=== PATIENT | female | born 1975 | race African-American/Black ===

== ENCOUNTER 2021-07-15 18:42 | Inpatient (IN) ==
[2021-07-15 19:29] LABS: PT Patient Result 10.9 SECS (10.5-12.0); Partial Thromboplastin Time 28.9 SECS (23.9-33.8)
[2021-07-15 19:41] LABS: Basophils % 0.2 % (0.0-0.8); Eosinophils % 0.2 % (0.00-10.9); Hematocrit 27.7 VOL% (35.7-47.0); Hemoglobin 7.6 GM/DL (12.0-16.0); Immature Granulocytes % 0.5 %; Immature Granulocytes Absolute 0.05 #; Lymphocytes # 1.2 10*3/uL (1.4-4.0); Lymphocytes % 11.7 % (21.3-54.2); Mean Corpuscular HGB Conc 27.4 GM/DL (32-36); Mean Corpuscular Volume 73.1 FL (87-102); Mean Platelet Volume 8.8 FL (9.6-12.0); Monocytes % 5.4 % (1.7-12.7); Platelet Count 346 T/CUMM (130-400); Red Blood Count 3.79 MC/CUMM (3.8-5.5); Red Cell Distribution Width 20.6 % (9.3-17.3); White Blood Count 10.6 T/CUMM (4-12)
[2021-07-15] MEDS ORDERED: MORPHINE 2 MG/1 ML SYRINGE ONE (20:13)
[2021-07-15] MEDS ORDERED: ONDANSETRON 4 MG/2 ML VIAL ONE (20:13)
[2021-07-15 20:36] LABS: CKMB % 9.7 %; Ferritin 12.8 ng/mL (8-252)
[2021-07-15] MEDS ORDERED: MORPHINE 2 MG/1 ML SYRINGE IV STA ×2 (20:36→23:07)
[2021-07-15] MEDS ORDERED: ONDANSETRON 4 MG/2 ML VIAL IV STA (20:37)
[2021-07-15 20:38] LABS: Bilirubin,Total 0.4 MG/DL (0.20-1.00); Calcium 8.5 MG/DL (8.5-10.1); High Sensitive Troponin I* 1299.4 ng/L (0-54); Osmolality,Calculated 278.5 MOS/KG (273-304); Total Protein 6.7 G/DL (6.4-8.2)
[2021-07-15] MEDS ORDERED: hydrALAZINE 20 MG/1 ML VIAL ONE (20:54)
[2021-07-15] MEDS ORDERED: hydrALAZINE 20 MG/1 ML VIAL IV STA (20:56)
[2021-07-16] MEDS ORDERED: SIMETHICONE CHEW 125 MG TABLET PO PRN (01:23)
[2021-07-16] MEDS ORDERED: DEXTROSE 50% 25 GM/50 ML VIAL IV PRN (01:23)
[2021-07-16] MEDS ORDERED: GLUCAGON 1 MG VIAL IM PRN (01:23)
[2021-07-16] MEDS ORDERED: MAGNESIUM SULF RIDER 2 GM/50 ML PREMIX IV PRN (01:23)
[2021-07-16] MEDS ORDERED: MAGNESIUM SULF RIDER 4 GM/100 ML PREMIX IV PRN (01:23)
[2021-07-16] MEDS ORDERED: hydrALAZINE 20 MG/1 ML VIAL IV PRN (01:23)
[2021-07-16] MEDS ORDERED: guaiFENesin/DM ER 600-30 MG TABLET PO PRN (01:23)
[2021-07-16] MEDS ORDERED: ONDANSETRON 4 MG/2 ML VIAL IV PRN (01:23)
[2021-07-16] MEDS ORDERED: POTASSIUM CHLORIDE RIDER 10 MEQ/100 ML PREMIX IV PRN (01:23)
[2021-07-16] MEDS ORDERED: NITROGLYCERIN SL 0.4 MG TABLET SL PRN (01:31)
[2021-07-16] MEDS: carvediloL 3.125 MG TABLET PO SCH ×3 (02:15→20:50)
[2021-07-16 02:24] LABS: Hematocrit 27.5 VOL% (35.7-47.0)
[2021-07-16 02:27] LABS: Hemoglobin 7.6 GM/DL (12.0-16.0)
[2021-07-16] MEDS: MORPHINE 2 MG/1 ML SYRINGE IV PRN ×2 (03:05→18:47)
[2021-07-16] MEDS: HYDROCORTISONE 100 MG VIAL IV SCH ×2 (03:55→20:50)
[2021-07-16] MEDS: ENOXAPARIN 120 MG/0.8 ML SYRINGE SUBCUT SCH ×2 (03:55→20:50)
[2021-07-16 06:02] LABS: Calcium 8.3 MG/DL (8.5-10.1); Osmolality,Calculated 274.5 MOS/KG (273-304); Potassium 3.5 MMOL/L (3.5-5.1); Risk Ratio 2.74; Thyroid Stimulating Hormone 4.85 uIU/ml (0.358-3.74); VLDL Cholesterol 14.8 MG/DL
[2021-07-16 06:46] LABS: Basophils % 0.2 % (0.0-0.8); Eosinophils # 0.1 10*3/uL (0.0-0.87); Eosinophils % 0.9 % (0.00-10.9); Hematocrit 25.7 VOL% (35.7-47.0); Hemoglobin 7.3 GM/DL (12.0-16.0); Immature Granulocytes % 0.3 %; Immature Granulocytes Absolute 0.03 #; Lymphocytes # 2.1 10*3/uL (1.4-4.0); Lymphocytes % 21.2 % (21.3-54.2); Mean Corpuscular HGB Conc 28.4 GM/DL (32-36); Mean Platelet Volume 9.7 FL (9.6-12.0); Monocytes % 8.2 % (1.7-12.7); Neutrophils % 69.2 % (38.7-73.9); Platelet Count 359 T/CUMM (130-400); Red Blood Count 3.57 MC/CUMM (3.8-5.5); Red Cell Distribution Width 20.6 % (9.3-17.3)
[2021-07-16] MEDS: INSULIN REGULAR 100 UNIT/ML SUBCUT SCH ×4 (07:30→20:50)
[2021-07-16] MEDS ORDERED: ENOXAPARIN 40 MG/0.4 ML SYRINGE SUBCUT SCH (09:00)
[2021-07-16] MEDS: LOSARTAN 25 MG TABLET PO SCH (09:06)
[2021-07-16] MEDS: ASPIRIN EC 81 MG TABLET PO SCH (09:07)
[2021-07-16] MEDS: ROSUVASTATIN 20 MG TABLET PO SCH (09:07)
[2021-07-16] MEDS: PANTOPRAZOLE 40 MG TABLET PO SCH (09:07)
[2021-07-16] MEDS: ISOSORBIDE MONONITRATE 30 MG TABLET PO SCH (13:27)
[2021-07-16] MEDS ORDERED: MELATONIN 3 MG TABLET PO PRN (14:22)
[2021-07-16] MEDS: FAMOTIDINE 20 MG TABLET PO SCH (20:50)
[2021-07-16] MEDS: ASCORBIC ACID 500 MG TABLET PO SCH (20:50)
[2021-07-17 06:12] LABS: Calcium 8.2 MG/DL (8.5-10.1); Osmolality,Calculated 273.5 MOS/KG (273-304); Potassium 3.9 MMOL/L (3.5-5.1)
[2021-07-17 06:23] LABS: Ferritin 17.2 ng/mL (8-252)
[2021-07-17 06:26] LABS: Basophils % 0.4 % (0.0-0.8); Eosinophils # 0.1 10*3/uL (0.0-0.87); Hematocrit 24.9 VOL% (35.7-47.0); Hemoglobin 6.8 GM/DL (12.0-16.0); Immature Granulocytes % 0.3 %; Immature Granulocytes Absolute 0.02 #; Lymphocytes # 2.4 10*3/uL (1.4-4.0); Lymphocytes % 33.1 % (21.3-54.2); Mean Corpuscular HGB Conc 27.3 GM/DL (32-36); Mean Platelet Volume 9.2 FL (9.6-12.0); Monocytes % 6.7 % (1.7-12.7); Neutrophils % 58.5 % (38.7-73.9); Platelet Count 333 T/CUMM (130-400); Red Blood Count 3.41 MC/CUMM (3.8-5.5); Red Cell Distribution Width 20.9 % (9.3-17.3); White Blood Count 7.3 T/CUMM (4-12)
[2021-07-17 06:32] LABS: Hypochromasia 1+; Microcytosis 1+; Platelet Estimate Adequate
[2021-07-17] MEDS: INSULIN REGULAR 100 UNIT/ML SUBCUT SCH ×4 (07:49→21:20)
[2021-07-17 07:54] LABS: CKMB % 7.3 %
[2021-07-17] MEDS ORDERED: SODIUM CHLORIDE 0.9% 1,000 ML IV PRN (08:40)
[2021-07-17] MEDS ORDERED: ASPIRIN EC 325 MG TABLET PO SCH (09:00)
[2021-07-17] MEDS: ROSUVASTATIN 20 MG TABLET PO SCH (10:42)
[2021-07-17] MEDS: ISOSORBIDE MONONITRATE 30 MG TABLET PO SCH (10:42)
[2021-07-17] MEDS: FAMOTIDINE 20 MG TABLET PO SCH ×2 (10:42→21:19)
[2021-07-17] MEDS: PANTOPRAZOLE 40 MG TABLET PO SCH (10:42)
[2021-07-17] MEDS: ASPIRIN EC 81 MG TABLET PO SCH (10:42)
[2021-07-17] MEDS: carvediloL 3.125 MG TABLET PO SCH ×2 (10:42→21:19)
[2021-07-17] MEDS: LOSARTAN 25 MG TABLET PO SCH (10:42)
[2021-07-17] MEDS: ZINC GLUCONATE 50 MG TABLET PO SCH (10:43)
[2021-07-17] MEDS: CETIRIZINE 10 MG TABLET PO SCH (10:43)
[2021-07-17] MEDS: MORPHINE 2 MG/1 ML SYRINGE IV PRN (10:43)
[2021-07-17] MEDS: CHOLECALCIFEROL 1,000 UNIT TABLET PO SCH (10:43)
[2021-07-17] MEDS: ASCORBIC ACID 500 MG TABLET PO SCH ×2 (10:43→21:20)
[2021-07-17] MEDS: HYDROCORTISONE 100 MG VIAL IV SCH ×2 (10:51→21:19)
[2021-07-17 23:50] LABS: Hematocrit 33.7 VOL% (35.7-47.0); Hemoglobin 9.9 GM/DL (12.0-16.0)
[2021-07-18 06:20] LABS: Ferritin 17.6 ng/mL (8-252)
[2021-07-18 06:30] LABS: Basophils % 0.2 % (0.0-0.8); Eosinophils # 0.1 10*3/uL (0.0-0.87); Eosinophils % 0.7 % (0.00-10.9); Hematocrit 33.2 VOL% (35.7-47.0); Hemoglobin 9.8 GM/DL (12.0-16.0); Immature Granulocytes % 0.4 %; Immature Granulocytes Absolute 0.03 #; Mean Corpuscular HGB Conc 29.5 GM/DL (32-36); Mean Corpuscular Volume 78.3 FL (87-102); Mean Platelet Volume 8.8 FL (9.6-12.0); Monocytes % 6.2 % (1.7-12.7); NRBC # 0.02 10*3/uL; Neutrophils % 69.5 % (38.7-73.9); Platelet Count 369 T/CUMM (130-400); Red Cell Distribution Width 22.3 % (9.3-17.3); White Blood Count 8.6 T/CUMM (4-12)
[2021-07-18 06:31] LABS: Red Blood Count 4.24 MC/CUMM (3.8-5.5)
[2021-07-18 07:43] VITALS: BP 140/80
[2021-07-18] MEDS: INSULIN REGULAR 100 UNIT/ML SUBCUT SCH ×2 (08:11→12:13)
[2021-07-18] MEDS: ASPIRIN EC 81 MG TABLET PO SCH (08:54)
[2021-07-18] MEDS: LOSARTAN 25 MG TABLET PO SCH (08:54)
[2021-07-18] MEDS: carvediloL 3.125 MG TABLET PO SCH (08:54)
[2021-07-18] MEDS: ROSUVASTATIN 20 MG TABLET PO SCH (08:54)
[2021-07-18] MEDS: FAMOTIDINE 20 MG TABLET PO SCH (08:55)
[2021-07-18] MEDS: HYDROCORTISONE 100 MG VIAL IV SCH (08:55)
[2021-07-18] MEDS: ISOSORBIDE MONONITRATE 30 MG TABLET PO SCH (08:55)
[2021-07-18] MEDS: ZINC GLUCONATE 50 MG TABLET PO SCH (08:55)
[2021-07-18] MEDS: CHOLECALCIFEROL 1,000 UNIT TABLET PO SCH (08:55)
[2021-07-18] MEDS: PANTOPRAZOLE 40 MG TABLET PO SCH (08:55)
[2021-07-18] MEDS: ASCORBIC ACID 500 MG TABLET PO SCH (08:55)
[2021-07-18] MEDS: CETIRIZINE 10 MG TABLET PO SCH (08:56)
[2021-07-18] MEDS: MORPHINE 2 MG/1 ML SYRINGE IV PRN (09:30)
[2021-07-18] MEDS ORDERED: KETOROLAC 30 MG/1 ML VIAL IM ONE (10:00)
== END 2021-07-18 13:23 | disposition home or self-care (01) | DRG 177 ==
LOC: EDBD → EDUNIT# → N.ED 18:42 → N.EDINP 07-16 00:31 → N.2E 07-16 00:46
PROVIDERS: ADMIT Internal Medicine; ATTEND Internal Medicine

== ENCOUNTER 2021-08-16 16:28 | Inpatient (IN) ==
[2021-08-16] MEDS ORDERED: ONDANSETRON 4 MG/2 ML VIAL IV ONE ×2 (17:57→18:56)
[2021-08-16] MEDS ORDERED: MORPHINE 2 MG/1 ML SYRINGE IV ONE ×2 (17:57→18:56)
[2021-08-16 18:24] LABS: Basophils % 0.2 % (0.0-0.8); Hematocrit 34.5 VOL% (35.7-47.0); Hemoglobin 10.4 GM/DL (12.0-16.0); Immature Granulocytes % 0.5 %; Immature Granulocytes Absolute 0.08 #; Lymphocytes # 1.7 10*3/uL (1.4-4.0); Lymphocytes % 11.5 % (21.3-54.2); Mean Corpuscular HGB Conc 30.1 GM/DL (32-36); Mean Corpuscular Volume 81.9 FL (87-102); Monocytes % 2.3 % (1.7-12.7); Neutrophils % 85.5 % (38.7-73.9); Platelet Count 364 T/CUMM (130-400); Red Blood Count 4.21 MC/CUMM (3.8-5.5); Red Cell Distribution Width 26.8 % (9.3-17.3); White Blood Count 14.9 T/CUMM (4-12)
[2021-08-16 18:48] LABS: Alanine Aminotransferase 19 U/L (13-56); Albumin 3.1 G/DL (3.4-5.0); Alkaline Phosphatase 81 U/L (45-117); Aspartate Amino Transferase 41 U/L (0-37); Bilirubin,Total < 0.39 MG/DL (0.20-1.00); Blood Urea Nitrogen 7 MG/DL (7-18); Calcium 8.5 MG/DL (8.5-10.1); Carbon Dioxide 20 MMOL/L (21-32); Estimated Glom Filtration Rate 145 ML/MIN; Glucose 116 MG/DL (74-106); Osmolality,Calculated 281.1 MOS/KG (273-304); Potassium 4.3 MMOL/L (3.5-5.1); Sodium 142 MMOL/L (136-145); Total Protein 6.9 G/DL (6.4-8.2)
[2021-08-16] MEDS ORDERED: NITROGLYCERIN 2% OINT 1 INCH/GM PACK TOP STA (18:55)
[2021-08-16] MEDS ORDERED: HEPARIN DRIP 25,000 UNITS/500 ML PREMIX IV SCH (19:00)
[2021-08-16] MEDS ORDERED: KETOROLAC 30 MG/1 ML VIAL IV ONE (19:12)
[2021-08-16] MEDS ORDERED: PANTOPRAZOLE 40 MG TABLET PO STA (19:14)
[2021-08-16] MEDS ORDERED: MAGNESIUM SULF RIDER 2 GM/50 ML PREMIX IV PRN (19:20)
[2021-08-16] MEDS ORDERED: MAGNESIUM SULF RIDER 4 GM/100 ML PREMIX IV PRN (19:20)
[2021-08-16 20:41] LABS: Barbiturates Screen,Urine Negative (Negative); Benzodiazepines Screen,Urine Negative (Negative); Cannabinoid Screen,Urine Negative (Negative); Opiate Screen,Urine Positive (Negative); Phencyclidine Screen,Urine Negative (Negative)
[2021-08-16] MEDS: SODIUM CHLORIDE 0.9% 1,000 ML IV SCH (21:45)
[2021-08-16] MEDS: CYCLOBENZAPRINE 10 MG TABLET PO PRN (21:45)
[2021-08-16] MEDS: MORPHINE 2 MG/1 ML SYRINGE IV PRN (21:45)
[2021-08-16] MEDS: GABAPENTIN 300 MG CAPSULE PO SCH (21:45)
[2021-08-17] MEDS: MORPHINE 2 MG/1 ML SYRINGE IV PRN ×2 (01:00→18:05)
[2021-08-17] MEDS: KETOROLAC 15 MG/1 ML VIAL IV PRN (02:05)
[2021-08-17] MEDS: SODIUM CHLORIDE 0.9% 1,000 ML IV SCH ×5 (04:45→22:03)
[2021-08-17 06:11] LABS: Basophils # 0.1 10*3/uL (0.0-0.2); Basophils % 0.5 % (0.0-0.8); Eosinophils # 0.1 10*3/uL (0.0-0.87); Eosinophils % 1.2 % (0.00-10.9); Hematocrit 30.7 VOL% (35.7-47.0); Hemoglobin 9.1 GM/DL (12.0-16.0); Immature Granulocytes % 0.4 %; Immature Granulocytes Absolute 0.04 #; Lymphocytes # 3.6 10*3/uL (1.4-4.0); Mean Corpuscular HGB Conc 29.6 GM/DL (32-36); Mean Corpuscular Volume 81.6 FL (87-102); Mean Platelet Volume 8.5 FL (9.6-12.0); Monocytes % 4.9 % (1.7-12.7); Platelet Count 299 T/CUMM (130-400); Red Blood Count 3.76 MC/CUMM (3.8-5.5); Red Cell Distribution Width 26.5 % (9.3-17.3); White Blood Count 10.9 T/CUMM (4-12)
[2021-08-17 06:33] LABS: Risk Ratio 2.37; VLDL Cholesterol 15.2 MG/DL
[2021-08-17 06:51] LABS: Albumin 2.5 G/DL (3.4-5.0); Bilirubin,Total 0.6 MG/DL (0.20-1.00); Calcium 7.8 MG/DL (8.5-10.1); Osmolality,Calculated 275.4 MOS/KG (273-304); Potassium 3.6 MMOL/L (3.5-5.1); Total Protein 6.1 G/DL (6.4-8.2)
[2021-08-17] MEDS: ASPIRIN EC 325 MG TABLET PO SCH (08:13)
[2021-08-17] MEDS: GABAPENTIN 300 MG CAPSULE PO SCH ×2 (08:13→20:27)
[2021-08-17] MEDS ORDERED: NITROGLYCERIN SL 0.4 MG TABLET SL PRN (11:39)
[2021-08-17] MEDS ORDERED: ENOXAPARIN 100 MG/ML SYRINGE SUBCUT SCH (12:00)
[2021-08-17] MEDS: carvediloL 3.125 MG TABLET PO SCH (18:02)
[2021-08-17] MEDS: ACETAMINOPHEN 500 MG TABLET PO SCH (18:03)
[2021-08-17] MEDS: CYCLOBENZAPRINE 10 MG TABLET PO PRN (20:27)
[2021-08-17] MEDS: RISPERIDONE 1 MG/ML PO SCH (20:27)
[2021-08-18] MEDS: ACETAMINOPHEN 500 MG TABLET PO SCH ×4 (00:30→17:21)
[2021-08-18] MEDS: MORPHINE 2 MG/1 ML SYRINGE IV PRN ×2 (00:41→22:04)
[2021-08-18] MEDS: SODIUM CHLORIDE 0.9% 1,000 ML IV SCH ×2 (04:40→05:45)
[2021-08-18 06:07] LABS: Basophils % 0.4 % (0.0-0.8); Eosinophils # 0.1 10*3/uL (0.0-0.87); Eosinophils % 1.9 % (0.00-10.9); Hematocrit 29.9 VOL% (35.7-47.0); Hemoglobin 8.8 GM/DL (12.0-16.0); Immature Granulocytes % 0.4 %; Immature Granulocytes Absolute 0.03 #; Lymphocytes # 2.4 10*3/uL (1.4-4.0); Lymphocytes % 33.6 % (21.3-54.2); Mean Corpuscular HGB Conc 29.4 GM/DL (32-36); Mean Corpuscular Volume 83.1 FL (87-102); Mean Platelet Volume 8.3 FL (9.6-12.0); Monocytes % 5.1 % (1.7-12.7); Neutrophils % 58.6 % (38.7-73.9); Platelet Count 254 T/CUMM (130-400); Red Cell Distribution Width 26.5 % (9.3-17.3); White Blood Count 7.2 T/CUMM (4-12)
[2021-08-18 06:36] LABS: Calcium 7.8 MG/DL (8.5-10.1); Osmolality,Calculated 277.3 MOS/KG (273-304); Potassium 3.7 MMOL/L (3.5-5.1)
[2021-08-18] MEDS: ISOSORBIDE MONONITRATE 30 MG TABLET PO SCH (08:33)
[2021-08-18] MEDS: FLUoxetine 20 MG CAPSULE PO SCH (08:34)
[2021-08-18] MEDS: LOSARTAN 25 MG TABLET PO SCH (08:34)
[2021-08-18] MEDS: ROSUVASTATIN 20 MG TABLET PO SCH (08:34)
[2021-08-18] MEDS: KETOROLAC 15 MG/1 ML VIAL IV PRN (08:34)
[2021-08-18] MEDS: GABAPENTIN 300 MG CAPSULE PO SCH ×2 (08:34→22:04)
[2021-08-18] MEDS: RISPERIDONE 1 MG/ML PO SCH (08:34)
[2021-08-18] MEDS: ASPIRIN EC 325 MG TABLET PO SCH (08:34)
[2021-08-18] MEDS: carvediloL 3.125 MG TABLET PO SCH (08:34)
[2021-08-18] MEDS ORDERED: POTASSIUM CHLORIDE RIDER 10 MEQ/100 ML PREMIX IV PRN ×2 (11:42→11:43)
[2021-08-18] MEDS ORDERED: MAGNESIUM SULF RIDER 2 GM/50 ML PREMIX IV PRN (11:42)
[2021-08-18] MEDS: ENOXAPARIN 100 MG/ML SYRINGE SUBCUT SCH (12:05)
[2021-08-18] MEDS: carvediloL 6.25 MG TABLET PO SCH (17:21)
[2021-08-19] MEDS: RISPERIDONE 1 MG/ML PO SCH ×2 (04:16→12:00)
[2021-08-19] MEDS: ACETAMINOPHEN 500 MG TABLET PO SCH ×3 (04:22→16:04)
[2021-08-19 05:09] LABS: Basophils % 0.5 % (0.0-0.8); Eosinophils # 0.2 10*3/uL (0.0-0.87); Eosinophils % 2.4 % (0.00-10.9); Hematocrit 29.2 VOL% (35.7-47.0); Hemoglobin 8.5 GM/DL (12.0-16.0); Immature Granulocytes % 0.3 %; Immature Granulocytes Absolute 0.02 #; Lymphocytes # 2.5 10*3/uL (1.4-4.0); Lymphocytes % 40.9 % (21.3-54.2); Mean Corpuscular HGB Conc 29.1 GM/DL (32-36); Mean Corpuscular Volume 83.7 FL (87-102); Mean Platelet Volume 8.8 FL (9.6-12.0); Monocytes % 6.4 % (1.7-12.7); Neutrophils % 49.5 % (38.7-73.9); Platelet Count 254 T/CUMM (130-400); Red Blood Count 3.49 MC/CUMM (3.8-5.5); Red Cell Distribution Width 26.7 % (9.3-17.3); White Blood Count 6.1 T/CUMM (4-12)
[2021-08-19 05:28] LABS: Calcium 7.9 MG/DL (8.5-10.1); Potassium 3.6 MMOL/L (3.5-5.1)
[2021-08-19 05:52] LABS: Hypochromasia 2+; Microcytosis 2+; Ovalocytes Slight
[2021-08-19 05:53] LABS: Platelet Estimate Normal
[2021-08-19] MEDS ORDERED: diphenhydrAMINE CAP 25 MG CAPSULE PO ONE (06:30)
[2021-08-19] MEDS ORDERED: DIAZEPAM 5 MG TABLET PO ONE (06:30)
[2021-08-19] MEDS: ENOXAPARIN 100 MG/ML SYRINGE SUBCUT SCH ×2 (06:41→16:56)
[2021-08-19] MEDS ORDERED: SODIUM CHLORIDE 0.45% 1,000 ML IV SCH (09:00)
[2021-08-19] MEDS: GABAPENTIN 300 MG CAPSULE PO SCH (09:18)
[2021-08-19] MEDS: FLUoxetine 20 MG CAPSULE PO SCH (09:18)
[2021-08-19] MEDS: ROSUVASTATIN 20 MG TABLET PO SCH (09:18)
[2021-08-19] MEDS: ISOSORBIDE MONONITRATE 30 MG TABLET PO SCH (09:19)
[2021-08-19] MEDS: LOSARTAN 25 MG TABLET PO SCH (09:19)
[2021-08-19] MEDS: carvediloL 6.25 MG TABLET PO SCH (09:19)
[2021-08-19] MEDS: ASPIRIN EC 325 MG TABLET PO SCH (09:19)
[2021-08-19] MEDS: CYCLOBENZAPRINE 10 MG TABLET PO PRN (14:28)
[2021-08-19 17:13] VITALS: BP 143/81
== END 2021-08-19 17:14 | disposition home or self-care (01) | DRG 282 ==
LOC: EDUNIT# → EDBD → N.ED 16:28 → SUATTDRO 19:20 → N.EDINP 19:20 → N.CC 21:19 → N.TELEN 08-17 16:13
PROVIDERS: ADMIT Internal Medicine Cardiovascular Disease; ATTEND Internal Medicine Cardiovascular Disease

== ENCOUNTER 2021-09-18 18:16 | Inpatient (IN) ==
[2021-09-18] MEDS ORDERED: GLUCAGON 1 MG VIAL IM PRN (21:07)
[2021-09-18] MEDS ORDERED: ONDANSETRON 4 MG/2 ML VIAL IV PRN (21:10)
[2021-09-18] MEDS ORDERED: hydrALAZINE 20 MG/1 ML VIAL IV PRN (21:10)
[2021-09-18] MEDS ORDERED: ACETAMINOPHEN 325 MG TABLET PO PRN (21:10)
[2021-09-18] MEDS ORDERED: MORPHINE 2 MG/1 ML SYRINGE IV PRN ×2 (21:10)
[2021-09-18] MEDS ORDERED: SIMETHICONE CHEW 125 MG TABLET PO PRN (21:10)
[2021-09-18] MEDS ORDERED: NITROGLYCERIN SL 0.4 MG TABLET SL PRN (21:10)
[2021-09-18] MEDS ORDERED: ZALEPLON 5 MG CAPSULE PO PRN (21:10)
[2021-09-18] MEDS ORDERED: DEXTROSE 50% 25 GM/50 ML SYRINGE IV PRN (21:35)
[2021-09-18] MEDS ORDERED: ENOXAPARIN 120 MG/0.8 ML SYRINGE SUBCUT ONE (21:50)
[2021-09-18 21:59] LABS: Basophils # 0.1 10*3/uL (0.0-0.2); Basophils % 0.4 % (0.0-0.8); Eosinophils % 0.2 % (0.00-10.9); Hematocrit 38.5 VOL% (35.7-47.0); Hemoglobin 11.5 GM/DL (12.0-16.0); Immature Granulocytes % 0.6 %; Immature Granulocytes Absolute 0.07 #; Lymphocytes # 2.5 10*3/uL (1.4-4.0); Mean Corpuscular HGB Conc 29.9 GM/DL (32-36); Mean Corpuscular Volume 88.5 FL (87-102); Monocytes % 5.2 % (1.7-12.7); Neutrophils % 73.6 % (38.7-73.9); Platelet Count 315 T/CUMM (130-400); Red Blood Count 4.35 MC/CUMM (3.8-5.5); Red Cell Distribution Width 25.1 % (9.3-17.3); White Blood Count 12.2 T/CUMM (4-12)
[2021-09-18 22:31] LABS: Albumin 3.3 G/DL (3.4-5.0); Bilirubin,Total 0.4 MG/DL (0.20-1.00); Osmolality,Calculated 280.3 MOS/KG (273-304); Potassium 3.9 MMOL/L (3.5-5.1); Thyroid Stimulating Hormone 4.24 uIU/ml (0.358-3.74); Total Protein 7.9 G/DL (6.4-8.2)
[2021-09-19 01:04] LABS: Risk Ratio 2.22; VLDL Cholesterol 14.2 MG/DL
[2021-09-19] MEDS ORDERED: ASPIRIN EC 81 MG TABLET PO SCH (10:00)
[2021-09-19] MEDS ORDERED: MAGNESIUM SULF RIDER 2 GM/50 ML PREMIX IV PRN (10:51)
[2021-09-19] MEDS ORDERED: diphenhydrAMINE CAP 25 MG CAPSULE PO ONE (10:51)
[2021-09-19] MEDS ORDERED: POTASSIUM CHLORIDE RIDER 10 MEQ/100 ML PREMIX IV PRN (10:51)
[2021-09-19] MEDS ORDERED: DIAZEPAM 5 MG TABLET PO ONE (10:51)
[2021-09-19] MEDS: NITROGLYCERIN 2% OINT 1 INCH/GM PACK TOP SCH ×3 (11:14→17:47)
[2021-09-19] MEDS: DOCUSATE SODIUM 100 MG CAPSULE PO SCH ×2 (11:14→21:37)
[2021-09-19] MEDS: METOPROLOL TARTRATE 25 MG TABLET PO SCH ×2 (11:15→21:38)
[2021-09-19] MEDS: PANTOPRAZOLE 40 MG TABLET PO SCH (11:15)
[2021-09-19] MEDS: SODIUM CHLORIDE 0.45% 1,000 ML IV SCH (13:57)
[2021-09-19] MEDS: TIROFIBAN 5,000 MCG/100 ML PREMIX IV SCH (14:25)
[2021-09-19] MEDS ORDERED: TIROFIBAN 5,000 MCG/100 ML PREMIX IV SCH (16:30)
[2021-09-19] MEDS ORDERED: ATORVASTATIN 80 MG TABLET PO SCH (21:00)
[2021-09-19] MEDS ORDERED: ENOXAPARIN 100 MG/ML SYRINGE SUBCUT SCH (21:00)
[2021-09-19] MEDS: TICAGRELOR 90 MG TABLET PO SCH (21:38)
[2021-09-20] MEDS: NITROGLYCERIN 2% OINT 1 INCH/GM PACK TOP SCH ×2 (00:28→05:36)
[2021-09-20 02:27] LABS: Basophils % 0.2 % (0.0-0.8); Eosinophils # 0.1 10*3/uL (0.0-0.87); Eosinophils % 1.3 % (0.00-10.9); Hematocrit 31.3 VOL% (35.7-47.0); Immature Granulocytes % 0.5 %; Immature Granulocytes Absolute 0.04 #; Lymphocytes # 1.7 10*3/uL (1.4-4.0); Lymphocytes % 20.9 % (21.3-54.2); Mean Corpuscular HGB Conc 30.4 GM/DL (32-36); Mean Corpuscular Volume 87.4 FL (87-102); Mean Platelet Volume 8.6 FL (9.6-12.0); Monocytes % 5.8 % (1.7-12.7); Neutrophils % 71.3 % (38.7-73.9); Platelet Count 265 T/CUMM (130-400); Red Blood Count 3.58 MC/CUMM (3.8-5.5); Red Cell Distribution Width 24.4 % (9.3-17.3); White Blood Count 8.3 T/CUMM (4-12)
[2021-09-20 02:29] LABS: Hemoglobin 9.5 GM/DL (12.0-16.0)
[2021-09-20 02:40] LABS: Calcium 8.2 MG/DL (8.5-10.1); Osmolality,Calculated 267.1 MOS/KG (273-304); Potassium 3.5 MMOL/L (3.5-5.1)
[2021-09-20] MEDS: TIROFIBAN 5,000 MCG/100 ML PREMIX IV SCH ×2 (06:26→12:56)
[2021-09-20] MEDS ORDERED: ASPIRIN CHEW 81 MG TABLET PO SCH (09:00)
[2021-09-20] MEDS: DOCUSATE SODIUM 100 MG CAPSULE PO SCH (09:00)
[2021-09-20] MEDS: TICAGRELOR 90 MG TABLET PO SCH (09:01)
[2021-09-20] MEDS: METOPROLOL TARTRATE 25 MG TABLET PO SCH (09:01)
[2021-09-20] MEDS: PANTOPRAZOLE 40 MG TABLET PO SCH (09:01)
[2021-09-20] MEDS ORDERED: SODIUM CHLORIDE 0.9% 1,000 ML IV SCH (12:30)
[2021-09-20] MEDS: SODIUM CHLORIDE 0.45% 1,000 ML IV SCH (12:57)
[2021-09-20] MEDS: GABAPENTIN 100 MG CAPSULE PO SCH ×2 (13:04→18:00)
[2021-09-20 16:40] VITALS: BP 116/70
== END 2021-09-20 18:24 | disposition left against medical advice (07) | DRG 246 ==
LOC: N.TELEN → SUATTDRO 20:58
PROVIDERS: ADMIT Internal Medicine; ATTEND Emergency Medicine
PROC: CLCCHCL (ICD-10-PCS; 2021-09-19 14:45)